=== PATIENT | female | born 2000 | race African-American/Black ===

== ENCOUNTER 2024-12-27 12:30 | Emergency (ER) | payer MEDICAID ==
[~2024-12-27] VITALS: Ht 160 cm; Wt 64.0 kg
[2024-12-27 12:35] VITALS: O2SAT 99
[2024-12-27] MEDS: ACETAMINOPHEN 325MG TABLET PO ONE (14:46)
[2024-12-27] MEDS: LIDOCAINE HCL/PF 1% 10 MG/ML 5ML VIAL INFIL ONE (14:46)
[2024-12-27] MEDS ORDERED: AM250 MT (14:51)
[2024-12-27] MEDS ORDERED: SULF1TAB48 MT (14:51)
[2024-12-27] MEDS: BACITRACIN ZINC OINT UDPKT TOP ONE ×2 (15:00)
[2024-12-27] MEDS: ONDANSETRON 4MG ODT PO ONE (15:40)
[2024-12-27] MEDS: KETOROLAC 30MG/ML VIAL IM ONE (15:40)
[2024-12-27 15:44] VITALS: BP 105/69; PULSE 65; RESP 16; TEMP 36.6; O2SAT 99
== END 2024-12-27 15:58 | disposition home or self-care (01) ==
LOC: ER 12:30
DX: N75.0 Cyst of Bartholin's gland (principal)
CPT/HCPCS: 81025; 56420; 96372; 99284; Q0162; J1885; J2003; Z7610 ×3